=== PATIENT | female | born 1935 | race Caucasian/White ===

== ENCOUNTER 2021-09-20 15:07 | Inpatient (IN) | payer MEDICARE, BC ==
[2021-09-20] MEDS ORDERED: Aspirin Chewable 81 MG TAB ONE (15:28)
[2021-09-20] MEDS ORDERED: Ondansetron PF 4 MG/2 ML Vial ONE (15:28)
[2021-09-20 16:02] LABS: #Eosinphils 0.1 10x3/uL (0.0-0.5); #Monocytes 0.7 10x3/uL (0.0-1.1); #Neutrophils 3.8 10x3/uL (1.5-8.4); %Basophils 0.5 % (0.0-2.0); %Lymphocytes 24.2 % (18.0-47.0); %Monocytes 10.8 % (0.0-10.0); %Neutrophils 62.2 % (40.0-75.0); Hemoglobin 12.6 g/dL (12.0-15.5); Mean Corpuscular HGB CONC 31.2 g/dL (32.0-36.0); Mean Corpuscular Hemoglobin 30.8 pg (27.0-33.0); Mean Corpuscular Volume 98.8 fl (81.6-98.3); Mean Platelet Volume 12.4 fl (7.4-10.4); Platelet Count 119 10x3/uL (150-450); RBC Distribution Width 13.2 % (11.5-14.5); Red Blood Cell (RBC) Count 4.09 10x6/uL (3.90-5.03)
[2021-09-20 16:18] LABS: ALT (SGPT) 100 U/L (8-55); AST (SGOT) 141 U/L (5-34); Albumin 3.9 g/dL (3.4-4.8); Alkaline Phosphatase 125 U/L (40-110); Anion Gap 14 mmol/L (10-20); BUN (Urea Nitrogen) 20 mg/dL (9.8-20.1); Bilirubin, Total 0.7 mg/dL (0.2-1.2); Calc. Creatinine Clearance 0 mL/min (70-130); Calcium 8.5 mg/dL (7.8-10.44); Carbon Dioxide 20 mmol/L (23-31); Chloride 109 mmol/L (98-107); Digoxin Less than 0.15 ng/mL (0.8-2.0); Globulin 2.4 g/dL (2.4-3.5); Glucose 119 mg/dL (83-110); Potassium 4.1 mmol/L (3.5-5.1); Protein, Total 6.3 g/dL (5.8-8.1); Sodium 139 mmol/L (136-145)
[2021-09-20] MEDS ORDERED: Diltiazem 125 MG/25 ML ONE (16:18)
[2021-09-20] MEDS ORDERED: Furosemide 40 MG/4 ML VIAL ONE (17:11)
[2021-09-20] MEDS ORDERED: Dextrose 50% Abboject 50 ML SYRINGE SLOW IVP PRN (18:29)
[2021-09-20] MEDS ORDERED: Dextrose 5% in Water 1,000 ML IV PRN (18:29)
[2021-09-20] MEDS ORDERED: HumaLOG 300 UNITS/3 ML VIAL SC PRN (18:29)
[2021-09-20 18:58] LABS: Free T4 (Free Thyroxine) 1.05 ng/dL (0.70-1.48); Thyroid Stimulating Hormone 1.7051 uIU/mL (0.35-4.94)
[2021-09-20 19:15] LABS: Troponin I 0.024 ng/mL (< 0.028)
[2021-09-20 22:17] LABS: Troponin I 0.024 ng/mL (< 0.028)
[2021-09-21 02:56] VITALS: BMI 23.5
[2021-09-21] MEDS: Sodium Chloride 0.9% 1,000 ML IV SCH ×3 (03:02→12:18)
[2021-09-21] MEDS ORDERED: Enoxaparin Sodium 40 MG/0.4 ML SYRINGE SC SCH (06:00)
[2021-09-21 09:19] LABS: Bilirubin Neg (Negative); Blood, Urine Negative (Negative); Clarity Clear (Clear); Glucose, Urine (Dipstick) Normal (Negative); Ketone, Urine Negative (Negative); Leukocyte Negative (Negative); Nitrite Negative (Negative); Protein, Urine (Dipstick) 15 mg/dl (Neg-Trace)
[2021-09-21 09:21] LABS: Urine Culture Reflex No No
[2021-09-21 09:34] LABS: Bacteria/HPF Rare-Few HPF (None Seen); RBC/HPF 0-3 HPF (0-3); WBC/HPF 0-3 HPF (0-3)
[2021-09-21] MEDS ORDERED: Diltiazem HCl 125 MG, Admixture Fee 1 EACH in Sodium Chloride 0.9% 100 ML IVPB SCH (09:45)
[2021-09-21 11:33] LABS: Hemoglobin A1c 6.7 % (4.0-6.0)
[2021-09-21] MEDS ORDERED: Magnesium 2 GM/50 ML 2 GM in Premix Bag 1 BAG IVPB SCH (13:00)
[2021-09-21 13:22] LABS: Anion Gap 12 mmol/L (10-20); BUN (Urea Nitrogen) 16 mg/dL (9.8-20.1); Calc. Creatinine Clearance 52 mL/min (70-130); Calcium 8.4 mg/dL (7.8-10.44); Carbon Dioxide 20 mmol/L (23-31); Chloride 109 mmol/L (98-107); Glucose 155 mg/dL (83-110); Magnesium 1.9 mg/dL (1.6-2.6); Potassium 4.3 mmol/L (3.5-5.1); Sodium 137 mmol/L (136-145)
[2021-09-21] MEDS ORDERED: Metoprolol Tartrate 25 MG TAB PO SCH (15:00)
[2021-09-21] MEDS: HumaLOG 300 UNITS/3 ML VIAL SC PRN (17:00)
[2021-09-21] MEDS: Ondansetron PF 4 MG/2 ML Vial IVP PRN (17:00)
[2021-09-21] MEDS: Apixaban 5 MG TAB PO SCH (20:09)
[2021-09-21] MEDS: Metoprolol Tartrate 25 MG TAB PO SCH (22:40)
[2021-09-22] MEDS: Sodium Chloride 0.9% 1,000 ML IV SCH ×2 (00:15→08:52)
[2021-09-22 08:50] LABS: SARS-CoV-2 NAA Rapid Test Not Detected (NotDetected)
[2021-09-22] MEDS: Apixaban 5 MG TAB PO SCH ×2 (08:51→20:05)
[2021-09-22] MEDS: Metoprolol Tartrate 25 MG TAB PO SCH ×2 (08:51→20:04)
[2021-09-22] MEDS: metFORMIN XR 500 MG TAB PO SCH (08:52)
[2021-09-22] MEDS ORDERED: Enoxaparin Sodium 40 MG/0.4 ML SYRINGE SC SCH (09:00)
[2021-09-22 09:02] LABS: ALT (SGPT) 112 U/L (8-55); AST (SGOT) 97 U/L (5-34); Albumin 3.8 g/dL (3.4-4.8); Alkaline Phosphatase 112 U/L (40-110); Anion Gap 14 mmol/L (10-20); BUN (Urea Nitrogen) 19 mg/dL (9.8-20.1); Bilirubin, Total 0.8 mg/dL (0.2-1.2); Calc. Creatinine Clearance 47 mL/min (70-130); Calcium 8.5 mg/dL (7.8-10.44); Carbon Dioxide 20 mmol/L (23-31); Chloride 108 mmol/L (98-107); Globulin 2.6 g/dL (2.4-3.5); Glucose 109 mg/dL (83-110); Potassium 3.9 mmol/L (3.5-5.1); Protein, Total 6.4 g/dL (5.8-8.1); Sodium 138 mmol/L (136-145)
[2021-09-22] MEDS ORDERED: Furosemide 20 MG/2 ML VIAL SLOW IVP SCH (12:00)
[2021-09-22 14:07] LABS: HIV (1/2) Antibody/Antigen Non-Reactive (NonReactive); HIV 1/2 INDEX 0.08 S/CO (<1.00)
[2021-09-22] MEDS ORDERED: hydrALAZINE 20 MG/ML VIAL SLOW IVP PRN (19:11)
[2021-09-22] MEDS ORDERED: Lisinopril 20 MG TAB PO SCH (20:00)
[2021-09-22] MEDS: Simvastatin 10 MG TAB PO SCH (20:04)
[2021-09-23 02:51] LABS: Hep C IgG Ab Non-Reactive (NonReactive); Hep C Index 0.05 S/CO (0-0.79)
[2021-09-23 04:38] LABS: AST (SGOT) 77 U/L (5-34); Albumin 3.8 g/dL (3.4-4.8); Alkaline Phosphatase 112 U/L (40-110); Anion Gap 16 mmol/L (10-20); BUN (Urea Nitrogen) 20 mg/dL (9.8-20.1); Bilirubin, Total 0.6 mg/dL (0.2-1.2); Calc. Creatinine Clearance 43 mL/min (70-130); Calcium 8.7 mg/dL (7.8-10.44); Carbon Dioxide 16 mmol/L (23-31); Chloride 108 mmol/L (98-107); Globulin 2.4 g/dL (2.4-3.5); Glucose 145 mg/dL (83-110); Potassium 4.1 mmol/L (3.5-5.1); Sodium 136 mmol/L (136-145)
[2021-09-23 04:57] LABS: ALT (SGPT) 95 U/L (8-55); Protein, Total 6.2 g/dL (5.8-8.1)
[2021-09-23] MEDS ORDERED: Furosemide 40 MG/4 ML VIAL SLOW IVP SCH ×2 (08:00→15:00)
[2021-09-23 08:31] LABS: #Eosinphils 0.2 10x3/uL (0.0-0.5); #Monocytes 0.7 10x3/uL (0.0-1.1); %Basophils 0.5 % (0.0-2.0); %Eosinophils 2.5 % (0.0-6.0); %Lymphocytes 19.5 % (18.0-47.0); %Monocytes 9.6 % (0.0-10.0); %Neutrophils 67.8 % (40.0-75.0); Hemoglobin 13.6 g/dL (12.0-15.5); Mean Corpuscular HGB CONC 30.9 g/dL (32.0-36.0); Mean Corpuscular Hemoglobin 30.8 pg (27.0-33.0); Mean Corpuscular Volume 99.5 fl (81.6-98.3); Mean Platelet Volume 12.5 fl (7.4-10.4); Platelet Count 139 10x3/uL (150-450); RBC Distribution Width 13.3 % (11.5-14.5); Red Blood Cell (RBC) Count 4.42 10x6/uL (3.90-5.03); White Blood Cell (WBC) Count 7.3 10x3/uL (3.5-10.5)
[2021-09-23] MEDS: metFORMIN XR 500 MG TAB PO SCH (08:44)
[2021-09-23] MEDS: Apixaban 5 MG TAB PO SCH ×2 (08:44→20:23)
[2021-09-23] MEDS: Metoprolol Tartrate 25 MG TAB PO SCH (08:44)
[2021-09-23] MEDS: Lisinopril 20 MG TAB PO SCH (08:44)
[2021-09-23] MEDS: Simvastatin 10 MG TAB PO SCH (20:23)
[2021-09-23] MEDS: Metoprolol Tartrate 50 MG TAB PO SCH (20:23)
[2021-09-24 04:01] LABS: #Basophils 0.1 10x3/uL (0.0-0.2); #Eosinphils 0.2 10x3/uL (0.0-0.5); #Monocytes 0.9 10x3/uL (0.0-1.1); #Neutrophils 5.1 10x3/uL (1.5-8.4); %Basophils 0.6 % (0.0-2.0); %Eosinophils 2.8 % (0.0-6.0); %Lymphocytes 21.3 % (18.0-47.0); %Monocytes 10.8 % (0.0-10.0); %Neutrophils 64.2 % (40.0-75.0); Hemoglobin 13.7 g/dL (12.0-15.5); Mean Corpuscular HGB CONC 31.4 g/dL (32.0-36.0); Mean Corpuscular Hemoglobin 31.4 pg (27.0-33.0); Mean Corpuscular Volume 99.8 fl (81.6-98.3); Mean Platelet Volume 12.4 fl (7.4-10.4); Platelet Count 143 10x3/uL (150-450); RBC Distribution Width 13.2 % (11.5-14.5); Red Blood Cell (RBC) Count 4.37 10x6/uL (3.90-5.03); White Blood Cell (WBC) Count 7.9 10x3/uL (3.5-10.5)
[2021-09-24 04:19] LABS: ALT (SGPT) 81 U/L (8-55); AST (SGOT) 53 U/L (5-34); Alkaline Phosphatase 107 U/L (40-110); Anion Gap 16 mmol/L (10-20); BUN (Urea Nitrogen) 19 mg/dL (9.8-20.1); Bilirubin, Total 0.7 mg/dL (0.2-1.2); Calc. Creatinine Clearance 40 mL/min (70-130); Calcium 9.1 mg/dL (7.8-10.44); Carbon Dioxide 23 mmol/L (23-31); Chloride 104 mmol/L (98-107); Globulin 2.6 g/dL (2.4-3.5); Glucose 132 mg/dL (83-110); Potassium 3.5 mmol/L (3.5-5.1); Protein, Total 6.6 g/dL (5.8-8.1); Sodium 139 mmol/L (136-145)
[2021-09-24] MEDS: Metoprolol Tartrate 50 MG TAB PO SCH ×2 (08:35→22:08)
[2021-09-24] MEDS: Apixaban 5 MG TAB PO SCH ×2 (08:35→22:08)
[2021-09-24] MEDS: Lisinopril 20 MG TAB PO SCH (08:35)
[2021-09-24] MEDS: metFORMIN XR 500 MG TAB PO SCH (08:37)
[2021-09-24] MEDS ORDERED: Potassium Chloride 10 MEQ TAB PO SCH (11:00)
[2021-09-24] MEDS ORDERED: Furosemide 40 MG TAB PO SCH (11:00)
[2021-09-24] MEDS: Ondansetron PF 4 MG/2 ML Vial IVP PRN (14:48)
[2021-09-24] MEDS: HumaLOG 300 UNITS/3 ML VIAL SC PRN (18:20)
[2021-09-24] MEDS: Simvastatin 10 MG TAB PO SCH (22:08)
[2021-09-25 03:51] LABS: #Basophils 0.1 10x3/uL (0.0-0.2); #Eosinphils 0.2 10x3/uL (0.0-0.5); #Monocytes 0.9 10x3/uL (0.0-1.1); #Neutrophils 4.4 10x3/uL (1.5-8.4); %Basophils 0.7 % (0.0-2.0); %Eosinophils 3.1 % (0.0-6.0); %Monocytes 11.4 % (0.0-10.0); %Neutrophils 59.4 % (40.0-75.0); Hemoglobin 13.2 g/dL (12.0-15.5); Mean Corpuscular HGB CONC 32.4 g/dL (32.0-36.0); Mean Corpuscular Hemoglobin 31.4 pg (27.0-33.0); Mean Corpuscular Volume 96.9 fl (81.6-98.3); Mean Platelet Volume 12.6 fl (7.4-10.4); Platelet Count 143 10x3/uL (150-450); RBC Distribution Width 13.2 % (11.5-14.5); Red Blood Cell (RBC) Count 4.21 10x6/uL (3.90-5.03); White Blood Cell (WBC) Count 7.5 10x3/uL (3.5-10.5)
[2021-09-25 03:58] LABS: ALT (SGPT) 64 U/L (8-55); AST (SGOT) 40 U/L (5-34); Albumin 3.8 g/dL (3.4-4.8); Alkaline Phosphatase 96 U/L (40-110); Anion Gap 14 mmol/L (10-20); BUN (Urea Nitrogen) 18 mg/dL (9.8-20.1); Bilirubin, Total 0.8 mg/dL (0.2-1.2); Calc. Creatinine Clearance 40 mL/min (70-130); Calcium 8.7 mg/dL (7.8-10.44); Carbon Dioxide 24 mmol/L (23-31); Chloride 102 mmol/L (98-107); Globulin 2.6 g/dL (2.4-3.5); Glucose 178 mg/dL (83-110); Potassium 3.6 mmol/L (3.5-5.1); Protein, Total 6.4 g/dL (5.8-8.1); Sodium 136 mmol/L (136-145)
[2021-09-25] MEDS: Metoprolol Tartrate 50 MG TAB PO SCH ×2 (08:04→20:29)
[2021-09-25] MEDS: Lisinopril 20 MG TAB PO SCH (08:04)
[2021-09-25] MEDS: metFORMIN XR 500 MG TAB PO SCH (08:04)
[2021-09-25] MEDS: Apixaban 5 MG TAB PO SCH ×2 (08:05→20:29)
[2021-09-25] MEDS: Potassium Chloride 10 MEQ TAB PO SCH (08:05)
[2021-09-25] MEDS: Furosemide 40 MG TAB PO SCH (08:05)
[2021-09-25] MEDS: Simvastatin 10 MG TAB PO SCH (20:29)
[2021-09-26 04:41] LABS: #Eosinphils 0.2 10x3/uL (0.0-0.5); #Monocytes 0.8 10x3/uL (0.0-1.1); %Basophils 0.6 % (0.0-2.0); %Eosinophils 3.1 % (0.0-6.0); %Lymphocytes 22.5 % (18.0-47.0); %Neutrophils 61.5 % (40.0-75.0); Hemoglobin 12.9 g/dL (12.0-15.5); Mean Corpuscular HGB CONC 32.8 g/dL (32.0-36.0); Mean Corpuscular Hemoglobin 32.1 pg (27.0-33.0); Mean Corpuscular Volume 97.8 fl (81.6-98.3); Mean Platelet Volume 12.5 fl (7.4-10.4); Platelet Count 138 10x3/uL (150-450); RBC Distribution Width 13.2 % (11.5-14.5); Red Blood Cell (RBC) Count 4.02 10x6/uL (3.90-5.03); White Blood Cell (WBC) Count 6.5 10x3/uL (3.5-10.5)
[2021-09-26 04:51] LABS: ALT (SGPT) 52 U/L (8-55); AST (SGOT) 35 U/L (5-34); Albumin 3.6 g/dL (3.4-4.8); Alkaline Phosphatase 92 U/L (40-110); Anion Gap 14 mmol/L (10-20); BUN (Urea Nitrogen) 15 mg/dL (9.8-20.1); Bilirubin, Total 0.9 mg/dL (0.2-1.2); Calc. Creatinine Clearance 50 mL/min (70-130); Calcium 8.8 mg/dL (7.8-10.44); Carbon Dioxide 26 mmol/L (23-31); Chloride 104 mmol/L (98-107); Globulin 2.4 g/dL (2.4-3.5); Glucose 133 mg/dL (83-110); Magnesium 1.7 mg/dL (1.6-2.6); Phosphorus 3.9 mg/dL (2.3-4.7); Potassium 3.2 mmol/L (3.5-5.1); Sodium 141 mmol/L (136-145)
[2021-09-26] MEDS ORDERED: Potassium Chloride 20 MEQ TAB PO SCH (06:30)
[2021-09-26] MEDS: Potassium Chloride 10 MEQ TAB PO SCH (07:59)
[2021-09-26] MEDS: Apixaban 5 MG TAB PO SCH (07:59)
[2021-09-26] MEDS: Furosemide 40 MG TAB PO SCH (07:59)
[2021-09-26] MEDS: Metoprolol Tartrate 50 MG TAB PO SCH (07:59)
[2021-09-26] MEDS: metFORMIN XR 500 MG TAB PO SCH (07:59)
[2021-09-26] MEDS: Lisinopril 20 MG TAB PO SCH (07:59)
[2021-09-26] MEDS: HumaLOG 300 UNITS/3 ML VIAL SC PRN (12:13)
[2021-09-26 15:21] VITALS: BP 150/80
[2021-09-26 15:37] VITALS: TEMP 96.7
== END 2021-09-26 16:37 | disposition home or self-care (01) | DRG 308 ==
LOC: CSHERS 15:07 → CSHTELE 19:31 → OBSVTOIN 19:32 → CSHERHOLD 19:32 → CSHTELE 09-21 02:48
PROVIDERS: ADMIT Family Medicine; ATTEND Family Medicine
DX: I48.91 Unspecified atrial fibrillation (principal); I50.33 Acute on chronic diastolic (congestive) heart failure; Z20.822 Contact with and (suspected) exposure to COVID-19; I27.21 Secondary pulmonary arterial hypertension; I25.10 Atherosclerotic heart disease of native coronary artery without angina pectoris; I70.0 Atherosclerosis of aorta; I11.0 Hypertensive heart disease with heart failure; R74.01 Elevation of levels of liver transaminase levels; E78.5 Hyperlipidemia, unspecified; F41.9 Anxiety disorder, unspecified; E11.9 Type 2 diabetes mellitus without complications; E87.6 Hypokalemia; Z90.49 Acquired absence of other specified parts of digestive tract
CPT/HCPCS: 36415; 36416; 71045; 71046; 71275; 76705; 80048; 80053; 80061; 80162; 81001; 83036; 83735; 83880; 84100; 84439; 84443; 84481; 84484; 85025; 85379; 86803; 87389; 93005; 93010; 93306; 94760; 94762; 96374; 96375; J0360; J1650; J1815; J1940; J2405; J3475; J3490; J7050; U0002; U0003; U0005

== ENCOUNTER 2021-10-12 00:20 | Emergency (ER) | payer MEDICARE, BC ==
[2021-10-12 01:02] LABS: #Eosinphils 0.2 10x3/uL (0.0-0.5); #Monocytes 0.7 10x3/uL (0.0-1.1); #Neutrophils 4.2 10x3/uL (1.5-8.4); %Basophils 0.6 % (0.0-2.0); %Eosinophils 2.9 % (0.0-6.0); %Lymphocytes 23.1 % (18.0-47.0); %Monocytes 10.6 % (0.0-10.0); %Neutrophils 62.5 % (40.0-75.0); Hemoglobin 13.5 g/dL (12.0-15.5); Mean Corpuscular HGB CONC 32.4 g/dL (32.0-36.0); Mean Corpuscular Hemoglobin 31.5 pg (27.0-33.0); Mean Corpuscular Volume 97.2 fl (81.6-98.3); Mean Platelet Volume 13.4 fl (7.4-10.4); Platelet Count 132 10x3/uL (150-450); RBC Distribution Width 13.6 % (11.5-14.5); Red Blood Cell (RBC) Count 4.29 10x6/uL (3.90-5.03); White Blood Cell (WBC) Count 6.6 10x3/uL (3.5-10.5)
[2021-10-12 01:22] LABS: ALT (SGPT) 70 U/L (8-55); AST (SGOT) 59 U/L (5-34); Albumin 4.1 g/dL (3.4-4.8); Alkaline Phosphatase 96 U/L (40-110); Anion Gap 13 mmol/L (10-20); BUN (Urea Nitrogen) 17 mg/dL (9.8-20.1); Bilirubin, Total 0.8 mg/dL (0.2-1.2); Calc. Creatinine Clearance 0 mL/min (70-130); Calcium 8.8 mg/dL (7.8-10.44); Carbon Dioxide 21 mmol/L (23-31); Chloride 107 mmol/L (98-107); Globulin 2.4 g/dL (2.4-3.5); Glucose 185 mg/dL (83-110); Protein, Total 6.5 g/dL (5.8-8.1); Sodium 137 mmol/L (136-145)
[2021-10-12 01:38] LABS: CKMB 6.1 ng/mL (0-6.6)
== END 2021-10-12 02:15 | disposition home or self-care (01) ==
LOC: CSHERS 00:20
DX: I48.19 Other persistent atrial fibrillation (principal)
CPT/HCPCS: 71045; 80053; 82553; 83880; 84484; 85025; 93005

== ENCOUNTER 2021-12-04 04:58 | Inpatient (IN) | payer MEDICARE, BC ==
[2021-12-04] MEDS ORDERED: Furosemide 100 MG/10 ML VIAL ONE (05:16)
[2021-12-04] MEDS ORDERED: Diltiazem 125 MG/25 ML ONE (05:16)
[2021-12-04 05:35] LABS: #Basophils 0.1 10x3/uL (0.0-0.2); #Eosinphils 0.2 10x3/uL (0.0-0.5); #Monocytes 0.9 10x3/uL (0.0-1.1); #Neutrophils 6.1 10x3/uL (1.5-8.4); %Basophils 0.9 % (0.0-2.0); %Eosinophils 1.8 % (0.0-6.0); %Lymphocytes 16.7 % (18.0-47.0); %Monocytes 10.7 % (0.0-10.0); %Neutrophils 69.6 % (40.0-75.0); Hemoglobin 14.9 g/dL (12.0-15.5); Mean Corpuscular HGB CONC 32.1 g/dL (32.0-36.0); Mean Corpuscular Hemoglobin 30.6 pg (27.0-33.0); Mean Corpuscular Volume 95.3 fl (81.6-98.3); Mean Platelet Volume 12.4 fl (7.4-10.4); Platelet Count 146 10x3/uL (150-450); Red Blood Cell (RBC) Count 4.87 10x6/uL (3.90-5.03); White Blood Cell (WBC) Count 8.8 10x3/uL (3.5-10.5)
[2021-12-04 05:50] LABS: ALT (SGPT) 35 U/L (8-55); AST (SGOT) 44 U/L (5-34); Alkaline Phosphatase 97 U/L (40-110); Anion Gap 19 mmol/L (10-20); BUN (Urea Nitrogen) 24 mg/dL (9.8-20.1); Bilirubin, Total 1.7 mg/dL (0.2-1.2); Calc. Creatinine Clearance 0 mL/min (70-130); Calcium 9.2 mg/dL (7.8-10.44); Carbon Dioxide 19 mmol/L (23-31); Chloride 105 mmol/L (98-107); Globulin 2.9 g/dL (2.4-3.5); Glucose 171 mg/dL (83-110); Potassium 3.5 mmol/L (3.5-5.1); Protein, Total 6.9 g/dL (5.8-8.1); Sodium 139 mmol/L (136-145)
[2021-12-04] MEDS ORDERED: Senokot S 8.6-50 MG TAB PO PRN (05:54)
[2021-12-04] MEDS ORDERED: Acetaminophen 325 MG TAB PO PRN (05:54)
[2021-12-04] MEDS ORDERED: Calcium Carbonate 500 MG ChewTAB PO PRN (05:54)
[2021-12-04] MEDS ORDERED: HYDROcodone/Acetaminophen 5/325 mg Tablet PO PRN (05:54)
[2021-12-04] MEDS ORDERED: Guaifenesin DM 100-10/5 ML UDCUP PO PRN (05:54)
[2021-12-04] MEDS ORDERED: Dextrose 5% in Water 1,000 ML IV PRN (05:57)
[2021-12-04] MEDS ORDERED: Dextrose 50% Abboject 50 ML SYRINGE SLOW IVP PRN (05:57)
[2021-12-04] MEDS ORDERED: Diltiazem 125 MG in Sodium Chloride 0.9% 100 ML IVPB SCH (06:00)
[2021-12-04 06:09] LABS: CKMB 5.7 ng/mL (0-6.6)
[2021-12-04] MEDS ORDERED: Potassium Chloride 20 MEQ TAB PO SCH ×2 (06:15→13:30)
[2021-12-04 06:41] LABS: SARS-CoV-2 NAA Rapid Test Not Detected (NotDetected)
[2021-12-04] MEDS ORDERED: Apixaban 5 MG TAB PO SCH (09:00)
[2021-12-04 10:53] LABS: CKMB 4.1 ng/mL (0-6.6)
[2021-12-04] MEDS: Metoprolol Tartrate 50 MG TAB PO SCH ×2 (10:59→21:59)
[2021-12-04] MEDS: Famotidine 20 MG TAB PO SCH (10:59)
[2021-12-04] MEDS: HumaLOG 300 UNITS/3 ML VIAL SC PRN ×2 (11:00→17:54)
[2021-12-04] MEDS: Potassium Chloride 10 MEQ TAB PO SCH (11:00)
[2021-12-04 12:11] LABS: Magnesium 1.8 mg/dL (1.6-2.6)
[2021-12-04] MEDS: Furosemide 20 MG/2 ML VIAL SLOW IVP SCH (14:46)
[2021-12-04] MEDS: Apixaban 2.5 MG TAB PO SCH (21:59)
[2021-12-04] MEDS: Simvastatin 10 MG TAB PO SCH (22:00)
[2021-12-05 04:54] LABS: #Basophils 0.1 10x3/uL (0.0-0.2); #Eosinphils 0.2 10x3/uL (0.0-0.5); #Monocytes 0.8 10x3/uL (0.0-1.1); #Neutrophils 4.5 10x3/uL (1.5-8.4); %Basophils 0.7 % (0.0-2.0); %Eosinophils 3.5 % (0.0-6.0); %Lymphocytes 17.1 % (18.0-47.0); %Monocytes 11.5 % (0.0-10.0); %Neutrophils 66.8 % (40.0-75.0); Hemoglobin 13.2 g/dL (12.0-15.5); Mean Corpuscular HGB CONC 32.4 g/dL (32.0-36.0); Mean Corpuscular Hemoglobin 31.1 pg (27.0-33.0); Mean Platelet Volume 12.6 fl (7.4-10.4); Platelet Count 125 10x3/uL (150-450); RBC Distribution Width 15.1 % (11.5-14.5); Red Blood Cell (RBC) Count 4.25 10x6/uL (3.90-5.03); White Blood Cell (WBC) Count 6.8 10x3/uL (3.5-10.5)
[2021-12-05 05:11] LABS: Anion Gap 18 mmol/L (10-20); BUN (Urea Nitrogen) 26 mg/dL (9.8-20.1); Calc. Creatinine Clearance 36 mL/min (70-130); Calcium 8.6 mg/dL (7.8-10.44); Carbon Dioxide 21 mmol/L (23-31); Chloride 105 mmol/L (98-107); Glucose 133 mg/dL (83-110); Potassium 3.7 mmol/L (3.5-5.1); Sodium 140 mmol/L (136-145)
[2021-12-05] MEDS: Furosemide 20 MG/2 ML VIAL SLOW IVP SCH (06:21)
[2021-12-05] MEDS: Famotidine 20 MG TAB PO SCH (07:59)
[2021-12-05] MEDS: Potassium Chloride 10 MEQ TAB PO SCH (07:59)
[2021-12-05] MEDS: Apixaban 2.5 MG TAB PO SCH ×2 (08:00→20:38)
[2021-12-05] MEDS: Metoprolol Tartrate 50 MG TAB PO SCH ×2 (08:00→20:38)
[2021-12-05 08:38] VITALS: BMI 23.2
[2021-12-05] MEDS: HumaLOG 300 UNITS/3 ML VIAL SC PRN ×3 (11:42→22:16)
[2021-12-05] MEDS: Furosemide 20 MG TAB PO SCH (14:08)
[2021-12-05] MEDS: Simvastatin 10 MG TAB PO SCH (20:38)
[2021-12-05] MEDS ORDERED: Lorazepam 0.5 MG TAB PO SCH (22:45)
[2021-12-06 04:37] LABS: Anion Gap 15 mmol/L (10-20); BUN (Urea Nitrogen) 33 mg/dL (9.8-20.1); Calc. Creatinine Clearance 21 mL/min (70-130); Calcium 8.5 mg/dL (7.8-10.44); Carbon Dioxide 23 mmol/L (23-31); Chloride 103 mmol/L (98-107); Glucose 109 mg/dL (83-110); Potassium 3.8 mmol/L (3.5-5.1); Sodium 137 mmol/L (136-145)
[2021-12-06] MEDS ORDERED: Potassium Chloride 20 MEQ TAB PO SCH (08:15)
[2021-12-06] MEDS: Metoprolol Tartrate 50 MG TAB PO SCH ×2 (08:38→21:24)
[2021-12-06] MEDS: Famotidine 20 MG TAB PO SCH (08:38)
[2021-12-06] MEDS: Potassium Chloride 10 MEQ TAB PO SCH (08:39)
[2021-12-06] MEDS: Furosemide 20 MG TAB PO SCH ×2 (08:39→13:42)
[2021-12-06] MEDS: Apixaban 2.5 MG TAB PO SCH ×2 (08:39→21:24)
[2021-12-06] MEDS: Simvastatin 10 MG TAB PO SCH (21:24)
[2021-12-06] MEDS: Diltiazem HCl SR 90 mg Capsule PO SCH (21:24)
[2021-12-07] MEDS: Metoprolol Tartrate 50 MG TAB PO SCH ×3 (00:08→20:14)
[2021-12-07] MEDS: Diltiazem HCl SR 90 mg Capsule PO SCH ×3 (00:09→20:15)
[2021-12-07] MEDS: Apixaban 2.5 MG TAB PO SCH ×3 (00:09→20:12)
[2021-12-07] MEDS: Simvastatin 10 MG TAB PO SCH ×2 (00:10→20:15)
[2021-12-07] MEDS: Famotidine 20 MG TAB PO SCH (08:43)
[2021-12-07] MEDS: Potassium Chloride 10 MEQ TAB PO SCH (08:46)
[2021-12-07] MEDS: Furosemide 20 MG TAB PO SCH (09:11)
[2021-12-07 10:13] LABS: Anion Gap 15 mmol/L (10-20); BUN (Urea Nitrogen) 35 mg/dL (9.8-20.1); Calc. Creatinine Clearance 23 mL/min (70-130); Calcium 8.6 mg/dL (7.8-10.44); Carbon Dioxide 24 mmol/L (23-31); Chloride 101 mmol/L (98-107); Glucose 247 mg/dL (83-110); Potassium 4.3 mmol/L (3.5-5.1); Sodium 136 mmol/L (136-145)
[2021-12-07] MEDS: HumaLOG 300 UNITS/3 ML VIAL SC PRN ×2 (16:51→20:48)
[2021-12-08] MEDS ORDERED: Sterile Water 10 ML VIAL FS PRN (01:45)
[2021-12-08] MEDS ORDERED: Ziprasidone 20 MG VIAL ONE (02:19)
[2021-12-08] MEDS ORDERED: Water For Injection,Sterile 20 ML ONE (02:20)
[2021-12-08] MEDS: Ziprasidone 20 MG VIAL IM SCH ×2 (02:24→07:41)
[2021-12-08 09:10] VITALS: BP 146/98; TEMP 98.5
[2021-12-08] MEDS: Apixaban 2.5 MG TAB PO SCH (09:37)
[2021-12-08] MEDS: Metoprolol Tartrate 50 MG TAB PO SCH (09:37)
[2021-12-08] MEDS: Diltiazem HCl SR 90 mg Capsule PO SCH (09:37)
[2021-12-08] MEDS: Potassium Chloride 10 MEQ TAB PO SCH (09:37)
[2021-12-08] MEDS: Furosemide 20 MG TAB PO SCH (09:38)
[2021-12-08] MEDS: Famotidine 20 MG TAB PO SCH (09:38)
== END 2021-12-08 10:42 | disposition home or self-care (01) | DRG 291 ==
LOC: CSHERS 04:58 → SUATTDRO 04:58 → CSHIMCU 07:50 → CSHTELE 12-06 07:46
PROVIDERS: ADMIT Hospitalist; ATTEND Hospitalist
DX: I13.0 Hypertensive heart and chronic kidney disease with heart failure and stage 1 through stage 4 chronic kidney disease, or unspecified chronic kidney disease (principal); I50.33 Acute on chronic diastolic (congestive) heart failure; N17.9 Acute kidney failure, unspecified; I24.8 Other forms of acute ischemic heart disease; I48.91 Unspecified atrial fibrillation; N18.31 Chronic kidney disease, stage 3a; E11.65 Type 2 diabetes mellitus with hyperglycemia; E11.22 Type 2 diabetes mellitus with diabetic chronic kidney disease; E78.2 Mixed hyperlipidemia; I25.10 Atherosclerotic heart disease of native coronary artery without angina pectoris; I70.0 Atherosclerosis of aorta; R41.0 Disorientation, unspecified; Z20.822 Contact with and (suspected) exposure to COVID-19; Z91.14 Patient's other noncompliance with medication regimen; Z88.0 Allergy status to penicillin; Z79.899 Other long term (current) drug therapy; Z79.01 Long term (current) use of anticoagulants; Z90.49 Acquired absence of other specified parts of digestive tract
CPT/HCPCS: 36415; 36416; 51702; 71045; 80048; 80053; 82553; 83735; 83880; 84443; 84484; 85025; 93005; 96365; 96366; 96375; 96376; 99292; J1815; J1940; J3475; J3486; J3490; U0002

== ENCOUNTER 2021-12-10 14:22 | Emergency (ER) | payer MEDICARE, BC ==
[2021-12-10] MEDS ORDERED: Aspirin Chewable 81 MG TAB ONE (15:19)
[2021-12-10] MEDS ORDERED: Diltiazem 125 MG/25 ML ONE ×3 (15:20→15:22)
[2021-12-10 15:29] LABS: #Eosinphils 0.2 10x3/uL (0.0-0.5); #Monocytes 1.1 10x3/uL (0.0-1.1); %Basophils 0.4 % (0.0-2.0); %Eosinophils 2.1 % (0.0-6.0); %Lymphocytes 14.8 % (18.0-47.0); %Monocytes 10.8 % (0.0-10.0); %Neutrophils 71.4 % (40.0-75.0); Mean Corpuscular HGB CONC 31.6 g/dL (32.0-36.0); Mean Corpuscular Hemoglobin 30.8 pg (27.0-33.0); Mean Corpuscular Volume 97.4 fl (81.6-98.3); Mean Platelet Volume 12.5 fl (7.4-10.4); Platelet Count 181 10x3/uL (150-450); Red Blood Cell (RBC) Count 4.55 10x6/uL (3.90-5.03); White Blood Cell (WBC) Count 9.8 10x3/uL (3.5-10.5)
[2021-12-10 15:40] LABS: ALT (SGPT) 33 U/L (8-55); AST (SGOT) 42 U/L (5-34); Albumin 3.8 g/dL (3.4-4.8); Alkaline Phosphatase 98 U/L (40-110); Anion Gap 17 mmol/L (10-20); BUN (Urea Nitrogen) 33 mg/dL (9.8-20.1); Bilirubin, Total 0.8 mg/dL (0.2-1.2); CK (CPK) 253 U/L (29-168); Calc. Creatinine Clearance 0 mL/min (70-130); Calcium 9.3 mg/dL (7.8-10.44); Carbon Dioxide 21 mmol/L (23-31); Chloride 106 mmol/L (98-107); Globulin 2.7 g/dL (2.4-3.5); Glucose 153 mg/dL (83-110); Potassium 5.2 mmol/L (3.5-5.1); Protein, Total 6.5 g/dL (5.8-8.1); Sodium 139 mmol/L (136-145)
== END 2021-12-10 17:48 | disposition home or self-care (01) ==
LOC: CSHERS 14:22
DX: I48.91 Unspecified atrial fibrillation (principal); E11.9 Type 2 diabetes mellitus without complications; I10 Essential (primary) hypertension; E78.5 Hyperlipidemia, unspecified
CPT/HCPCS: 71045; 80053; 82550; 83605; 83880; 84484; 85025; 93005; 96365; 96376

== ENCOUNTER → 2022-01-28 | Day surgery (SDC) | payer BC, MEDICARE ==
[~2022-01-28] MED LIST: Lidocaine 1% (PF) 30 ML VIAL ONE; Magnesium 2 GM/50 ML(in water) 2 GM in Premix Bag 1 BAG IVPB SCH; PROPOFOL 200 MG/20 ML VIAL ONE
[2022-01-28 10:38] VITALS: BMI 22.7
== END ==
LOC: CSHSDC 09:26
PROVIDERS: ATTEND Specialist
DX: I48.19 Other persistent atrial fibrillation (principal); I48.92 Unspecified atrial flutter; I10 Essential (primary) hypertension; E11.59 Type 2 diabetes mellitus with other circulatory complications; I25.118 Atherosclerotic heart disease of native coronary artery with other forms of angina pectoris; Z95.5 Presence of coronary angioplasty implant and graft; Z88.0 Allergy status to penicillin; Z79.01 Long term (current) use of anticoagulants; Z79.899 Other long term (current) drug therapy; Z79.82 Long term (current) use of aspirin; Z79.84 Long term (current) use of oral hypoglycemic drugs
CPT/HCPCS: 92960; 93005; 93010; J2001; J2704; J3475

== ENCOUNTER 2022-03-01 11:28 | Emergency (ER) | payer MEDICARE, BC ==
[2022-03-01 12:44] LABS: #Eosinphils 0.2 10x3/uL (0.0-0.5); #Monocytes 0.6 10x3/uL (0.0-1.1); #Neutrophils 3.8 10x3/uL (1.5-8.4); %Basophils 0.5 % (0.0-2.0); %Lymphocytes 18.4 % (18.0-47.0); %Monocytes 10.7 % (0.0-10.0); %Neutrophils 66.9 % (40.0-75.0); Hemoglobin 12.1 g/dL (12.0-15.5); Mean Corpuscular HGB CONC 32.7 g/dL (32.0-36.0); Mean Corpuscular Hemoglobin 32.1 pg (27.0-33.0); Mean Corpuscular Volume 98.1 fl (81.6-98.3); Mean Platelet Volume 11.6 fl (7.4-10.4); Platelet Count 146 10x3/uL (150-450); RBC Distribution Width 15.1 % (11.5-14.5); Red Blood Cell (RBC) Count 3.77 10x6/uL (3.90-5.03); White Blood Cell (WBC) Count 5.7 10x3/uL (3.5-10.5)
[2022-03-01 12:59] LABS: ALT (SGPT) 21 U/L (8-55); AST (SGOT) 30 U/L (5-34); Albumin 3.8 g/dL (3.4-4.8); Alkaline Phosphatase 85 U/L (40-110); Anion Gap 10 mmol/L (10-20); BUN (Urea Nitrogen) 15 mg/dL (9.8-20.1); Bilirubin, Total 0.8 mg/dL (0.2-1.2); Calc. Creatinine Clearance 0 mL/min (70-130); Calcium 8.8 mg/dL (7.8-10.44); Carbon Dioxide 26 mmol/L (23-31); Chloride 103 mmol/L (98-107); Globulin 2.8 g/dL (2.4-3.5); Glucose 142 mg/dL (83-110); Lipase 36 U/L (8-78); Potassium 3.3 mmol/L (3.5-5.1); Protein, Total 6.6 g/dL (5.8-8.1); Sodium 136 mmol/L (136-145)
[2022-03-01 13:35] LABS: Bilirubin Neg (Negative); Blood, Urine Negative (Negative); Glucose, Urine (Dipstick) Normal (Negative); Ketone, Urine Negative (Negative); Leukocyte 100 (Negative); Nitrite Negative (Negative); Protein, Urine (Dipstick) 15 mg/dl (Neg-Trace)
[2022-03-01 13:42] LABS: Clarity Clear (Clear)
[2022-03-01 13:58] LABS: Bacteria/HPF Rare-Few HPF (None Seen); RBC/HPF 0-3 HPF (0-3)
== END 2022-03-01 14:01 | disposition home or self-care (01) ==
LOC: CSHERS 11:28
DX: N39.0 Urinary tract infection, site not specified (principal); I10 Essential (primary) hypertension; I48.91 Unspecified atrial fibrillation; E11.9 Type 2 diabetes mellitus without complications; E78.5 Hyperlipidemia, unspecified; Z79.84 Long term (current) use of oral hypoglycemic drugs; Z79.01 Long term (current) use of anticoagulants; Z79.899 Other long term (current) drug therapy
CPT/HCPCS: 36415; 80053; 81003; 81015; 83690; 85025; 93005

== ENCOUNTER 2022-03-03 10:49 | Emergency (ER) | payer OTHER, MEDICARE, BC | END 2022-03-03 12:30 | disposition home or self-care (01) | LOC: CSHERS 10:49 | DX: S00.03XA Contusion of scalp, initial encounter (principal); W01.10XA Fall on same level from slipping, tripping and stumbling with subsequent striking against unspecified object, initial encounter; Z79.899 Other long term (current) drug therapy; Z79.01 Long term (current) use of anticoagulants; Z79.84 Long term (current) use of oral hypoglycemic drugs; I48.91 Unspecified atrial fibrillation; E11.9 Type 2 diabetes mellitus without complications; I10 Essential (primary) hypertension; E78.5 Hyperlipidemia, unspecified | CPT/HCPCS: 70450; 72125 ==

== ENCOUNTER 2022-03-11 14:39 | Inpatient (IN) | payer MEDICARE, BC ==
[2022-03-11 15:45] LABS: #Basophils 0.1 10x3/uL (0.0-0.2); #Eosinphils 0.3 10x3/uL (0.0-0.5); #Monocytes 0.9 10x3/uL (0.0-1.1); #Neutrophils 6.4 10x3/uL (1.5-8.4); %Basophils 0.5 % (0.0-2.0); %Eosinophils 2.7 % (0.0-6.0); %Lymphocytes 20.4 % (18.0-47.0); %Monocytes 8.9 % (0.0-10.0); %Neutrophils 66.5 % (40.0-75.0); Hemoglobin 10.9 g/dL (12.0-15.5); Mean Corpuscular HGB CONC 31.8 g/dL (32.0-36.0); Mean Corpuscular Hemoglobin 31.9 pg (27.0-33.0); Mean Corpuscular Volume 100.3 fl (81.6-98.3); Mean Platelet Volume 11.4 fl (7.4-10.4); Platelet Count 210 10x3/uL (150-450); RBC Distribution Width 15.3 % (11.5-14.5); Red Blood Cell (RBC) Count 3.42 10x6/uL (3.90-5.03); White Blood Cell (WBC) Count 9.6 10x3/uL (3.5-10.5)
[2022-03-11 16:01] LABS: Phosphorus 5.2 mg/dL (2.3-4.7)
[2022-03-11 16:04] LABS: ALT (SGPT) 39 U/L (8-55); AST (SGOT) 85 U/L (5-34); Albumin 4.1 g/dL (3.4-4.8); Alkaline Phosphatase 116 U/L (40-110); Anion Gap 16 mmol/L (10-20); BUN (Urea Nitrogen) 22 mg/dL (9.8-20.1); Bilirubin, Total 0.9 mg/dL (0.2-1.2); Calc. Creatinine Clearance 0 mL/min (70-130); Calcium 8.9 mg/dL (7.8-10.44); Carbon Dioxide 22 mmol/L (23-31); Chloride 101 mmol/L (98-107); Globulin 2.6 g/dL (2.4-3.5); Glucose 206 mg/dL (83-110); Magnesium 2.2 mg/dL (1.6-2.6); Potassium 5.3 mmol/L (3.5-5.1); Protein, Total 6.7 g/dL (5.8-8.1); Sodium 134 mmol/L (136-145)
[2022-03-11] MEDS ORDERED: Calcium Gluc 4.6 MEQ/10 ML (100 MG/ML) ONE (16:35)
[2022-03-11 18:00] LABS: Actual Bicarbonate (HCO3a) 17.2 mEq/L (22-28); Base Excess (BEa) -6.6 mEq/L (-2.0 to +3.0); CO2 Tension 29.3 mmHg (35.0-45.0); Calcium, Ionized (arterial) 1.17 mmol/L (1.12-1.30); Carboxyhemoglobin (COHb) 0.3 gm% (0.0-3.0); Hemoglobin (Hb) 11.9 g/dL (12.0-16.0); O2 Tension (PaO2), arterial 63.7 mmHg (> 60.0); Potassium - ABG Lab 5.2 mmol/L (3.70-5.30); Puncture Site LRA; pH, Arterial 7.39 (7.35-7.45)
[2022-03-11 18:01] LABS: ALV-art Gradient 49.405 mmHg (0-20)
[2022-03-11 18:17] LABS: SARS-CoV-2 NAA Rapid Test Not Detected (NotDetected)
[2022-03-11] MEDS ORDERED: Dextrose 50% Abboject 50 ML SYRINGE SLOW IVP PRN (18:24)
[2022-03-11] MEDS ORDERED: HumaLOG 300 UNITS/3 ML VIAL SC PRN (18:24)
[2022-03-11] MEDS ORDERED: Dextrose 5% in Water 1,000 ML IV PRN (18:24)
[2022-03-11 20:13] LABS: Anion Gap 19 mmol/L (10-20); BUN (Urea Nitrogen) 23 mg/dL (9.8-20.1); Calc. Creatinine Clearance 22 mL/min (70-130); Calcium 9.2 mg/dL (7.8-10.44); Carbon Dioxide 18 mmol/L (23-31); Chloride 102 mmol/L (98-107); Glucose 197 mg/dL (83-110); Potassium 5.3 mmol/L (3.5-5.1); Sodium 134 mmol/L (136-145)
[2022-03-11] MEDS ORDERED: Lorazepam 2 MG/ML VIAL SLOW IVP SCH (21:00)
[2022-03-11] MEDS ORDERED: Nitroglycerin 2% Ointment 1 INCH/1 GM Packet TOP SCH (21:00)
[2022-03-11] MEDS ORDERED: Calcium Gluc 4.6 MEQ/10 ML (100 MG/ML) SLOW IVP SCH (21:15)
[2022-03-11] MEDS ORDERED: Sodium Bicarb 50 MEQ/50 ML VIAL IVP SCH (21:15)
[2022-03-11] MEDS: Sodium Chloride 0.9% 1,000 ML IV SCH (21:37)
[2022-03-11] MEDS ORDERED: Albuterol Sulfate 2.5 mg/3 ml Neb NEB PRN (21:45)
[2022-03-11] MEDS ORDERED: Morphine 4 MG/ML VIAL SLOW IVP SCH (21:45)
[2022-03-11] MEDS: cefTRIAXone\\ROCEPHIN 1 GM in Sodium Chloride 0.9% 100 ML IVPB SCH (21:48)
[2022-03-11] MEDS: hydrALAZINE 20 MG/ML VIAL SLOW IVP PRN (21:48)
[2022-03-11] MEDS: Famotidine/PF 20 mg/2ml Vial SLOW IVP SCH (21:50)
[2022-03-11] MEDS ORDERED: Albuterol Sulfate 2.5 mg/3 ml Neb ONE (21:52)
[2022-03-11 23:25] LABS: Bilirubin Neg (Negative); Blood, Urine Negative (Negative); Clarity Clear (Clear); Glucose, Urine (Dipstick) Normal (Negative); Ketone, Urine Negative (Negative); Leukocyte Negative (Negative); Nitrite Negative (Negative); Protein, Urine (Dipstick) Negative (Neg-Trace); pH, Urine 6.5 (5.0-9.0)
[2022-03-11 23:34] LABS: Bacteria/HPF None Seen HPF (None Seen); RBC/HPF 0-3 HPF (0-3); Squamous Epithelial 0-3 HPF (0-3); WBC/HPF None Seen HPF (0-3)
[2022-03-12 05:02] LABS: Anion Gap 15 mmol/L (10-20); BUN (Urea Nitrogen) 20 mg/dL (9.8-20.1); CK (CPK) 114 U/L (29-168); Calc. Creatinine Clearance 30 mL/min (70-130); Calcium 7.5 mg/dL (7.8-10.44); Carbon Dioxide 20 mmol/L (23-31); Chloride 108 mmol/L (98-107); Glucose 147 mg/dL (83-110); Potassium 4.1 mmol/L (3.5-5.1); Sodium 139 mmol/L (136-145)
[2022-03-12 05:09] LABS: #Monocytes 1.1 10x3/uL (0.0-1.1); #Neutrophils 8.8 10x3/uL (1.5-8.4); %Basophils 0.4 % (0.0-2.0); %Lymphocytes 10.5 % (18.0-47.0); %Monocytes 9.8 % (0.0-10.0); %Neutrophils 78.8 % (40.0-75.0); Hemoglobin 9.6 g/dL (12.0-15.5); Mean Corpuscular HGB CONC 32.1 g/dL (32.0-36.0); Mean Corpuscular Hemoglobin 31.9 pg (27.0-33.0); Mean Corpuscular Volume 99.3 fl (81.6-98.3); Mean Platelet Volume 11.7 fl (7.4-10.4); Platelet Count 166 10x3/uL (150-450); RBC Distribution Width 15.2 % (11.5-14.5); Red Blood Cell (RBC) Count 3.01 10x6/uL (3.90-5.03); White Blood Cell (WBC) Count 11.2 10x3/uL (3.5-10.5)
[2022-03-12] MEDS: Sodium Chloride 0.9% 1,000 ML IV SCH ×2 (08:48→21:10)
[2022-03-12] MEDS ORDERED: Calcium Gluconate 4.6 MEQ in Sodium Chloride 0.9% 100 ML IVPB SCH (11:10)
[2022-03-12] MEDS: cefTRIAXone\\ROCEPHIN 1 GM in Sodium Chloride 0.9% 100 ML IVPB SCH (17:56)
[2022-03-12] MEDS: Famotidine/PF 20 mg/2ml Vial SLOW IVP SCH (21:10)
[2022-03-13] MEDS: hydrALAZINE 20 MG/ML VIAL SLOW IVP PRN ×2 (02:05→10:26)
[2022-03-13 04:16] LABS: #Eosinphils 0.1 10x3/uL (0.0-0.5); #Monocytes 0.8 10x3/uL (0.0-1.1); #Neutrophils 7.1 10x3/uL (1.5-8.4); %Basophils 0.3 % (0.0-2.0); %Eosinophils 1.4 % (0.0-6.0); %Lymphocytes 10.8 % (18.0-47.0); %Monocytes 9.1 % (0.0-10.0); %Neutrophils 77.2 % (40.0-75.0); Hemoglobin 10.4 g/dL (12.0-15.5); Mean Corpuscular HGB CONC 32.3 g/dL (32.0-36.0); Mean Corpuscular Hemoglobin 32.2 pg (27.0-33.0); Mean Corpuscular Volume 99.7 fl (81.6-98.3); Mean Platelet Volume 11.5 fl (7.4-10.4); Platelet Count 161 10x3/uL (150-450); RBC Distribution Width 15.3 % (11.5-14.5); Red Blood Cell (RBC) Count 3.23 10x6/uL (3.90-5.03); White Blood Cell (WBC) Count 9.2 10x3/uL (3.5-10.5)
[2022-03-13 04:30] LABS: Anion Gap 15 mmol/L (10-20); BUN (Urea Nitrogen) 19 mg/dL (9.8-20.1); Calc. Creatinine Clearance 31 mL/min (70-130); Calcium 8.5 mg/dL (7.8-10.44); Carbon Dioxide 22 mmol/L (23-31); Chloride 105 mmol/L (98-107); Glucose 99 mg/dL (83-110); Potassium 4.8 mmol/L (3.5-5.1); Sodium 137 mmol/L (136-145)
[2022-03-13] MEDS: Lisinopril 20 MG TAB PO SCH (09:32)
[2022-03-13] MEDS: Sodium Chloride 0.9% 1,000 ML IV SCH (10:22)
[2022-03-13] MEDS: cefTRIAXone\\ROCEPHIN 1 GM in Sodium Chloride 0.9% 100 ML IVPB SCH (17:42)
[2022-03-13] MEDS: Famotidine/PF 20 mg/2ml Vial SLOW IVP SCH (20:00)
[2022-03-13] MEDS: Simvastatin 10 MG TAB PO SCH (20:00)
[2022-03-14] MEDS: hydrALAZINE 20 MG/ML VIAL SLOW IVP PRN ×2 (00:32→11:01)
[2022-03-14 05:19] LABS: #Eosinphils 0.1 10x3/uL (0.0-0.5); #Monocytes 0.9 10x3/uL (0.0-1.1); #Neutrophils 6.6 10x3/uL (1.5-8.4); %Basophils 0.3 % (0.0-2.0); %Eosinophils 1.6 % (0.0-6.0); %Lymphocytes 10.2 % (18.0-47.0); %Monocytes 10.5 % (0.0-10.0); %Neutrophils 76.9 % (40.0-75.0); Hemoglobin 11.5 g/dL (12.0-15.5); Mean Corpuscular HGB CONC 33.3 g/dL (32.0-36.0); Mean Corpuscular Hemoglobin 31.9 pg (27.0-33.0); Mean Corpuscular Volume 95.8 fl (81.6-98.3); Mean Platelet Volume 11.1 fl (7.4-10.4); Platelet Count 164 10x3/uL (150-450); RBC Distribution Width 15.4 % (11.5-14.5); White Blood Cell (WBC) Count 8.6 10x3/uL (3.5-10.5)
[2022-03-14 05:25] LABS: Anion Gap 15 mmol/L (10-20); BUN (Urea Nitrogen) 12 mg/dL (9.8-20.1); Calc. Creatinine Clearance 51 mL/min (70-130); Calcium 8.3 mg/dL (7.8-10.44); Carbon Dioxide 19 mmol/L (23-31); Chloride 106 mmol/L (98-107); Glucose 100 mg/dL (83-110); Potassium 3.6 mmol/L (3.5-5.1); Sodium 136 mmol/L (136-145)
[2022-03-14] MEDS: Sodium Chloride 0.9% 1,000 ML IV SCH (05:30)
[2022-03-14 07:22] VITALS: BMI 22.0
[2022-03-14] MEDS: Lisinopril 20 MG TAB PO SCH (08:50)
[2022-03-14] MEDS ORDERED: Amlodipine 5 MG TAB PO SCH (09:30)
[2022-03-14] MEDS ORDERED: Potassium Chloride 20 MEQ TAB PO SCH (11:00)
[2022-03-14] MEDS: cefTRIAXone\\ROCEPHIN 1 GM in Sodium Chloride 0.9% 100 ML IVPB SCH (18:31)
[2022-03-14] MEDS: Apixaban 2.5 MG TAB PO SCH (22:34)
[2022-03-14] MEDS: Simvastatin 10 MG TAB PO SCH (22:34)
[2022-03-14] MEDS: Famotidine/PF 20 mg/2ml Vial SLOW IVP SCH (22:35)
[2022-03-15] MEDS: Apixaban 2.5 MG TAB PO SCH (07:54)
[2022-03-15] MEDS: Lisinopril 20 MG TAB PO SCH (07:54)
[2022-03-15 07:56] VITALS: BP 168/88
[2022-03-15] MEDS ORDERED: Amlodipine 5 MG TAB PO SCH ×2 (09:00→09:15)
[2022-03-15] MEDS ORDERED: Potassium Bicarbonate/Cit Ac 20 MEQ TAB PO SCH (11:45)
[2022-03-15 12:50] VITALS: TEMP 97.4
[2022-03-16] MEDS ORDERED: Amlodipine 10 MG TAB PO SCH (09:00)
== END 2022-03-15 15:21 | disposition home or self-care (01) | DRG 308 ==
LOC: CSHERS 14:39 → CSHICU 18:15 → CSHTELE 18:27
PROVIDERS: ADMIT Internal Medicine; ATTEND Internal Medicine
PROC: 0T9B70Z Drainage of Bladder with Drainage Device, Via Natural or Artificial Opening (ICD-10-PCS; principal; 2022-03-12)
DX: I48.0 Paroxysmal atrial fibrillation (principal); G93.41 Metabolic encephalopathy; N17.9 Acute kidney failure, unspecified; I50.32 Chronic diastolic (congestive) heart failure; E87.2 Acidosis; N39.0 Urinary tract infection, site not specified; I13.0 Hypertensive heart and chronic kidney disease with heart failure and stage 1 through stage 4 chronic kidney disease, or unspecified chronic kidney disease; E78.5 Hyperlipidemia, unspecified; F03.90 Unspecified dementia, unspecified severity, without behavioral disturbance, psychotic disturbance, mood disturbance, and anxiety; E87.5 Hyperkalemia; N18.30 Chronic kidney disease, stage 3 unspecified; E11.22 Type 2 diabetes mellitus with diabetic chronic kidney disease; R33.9 Retention of urine, unspecified; E83.51 Hypocalcemia; I25.10 Atherosclerotic heart disease of native coronary artery without angina pectoris; I70.0 Atherosclerosis of aorta; I49.5 Sick sinus syndrome; Z20.822 Contact with and (suspected) exposure to COVID-19; Z90.49 Acquired absence of other specified parts of digestive tract; Z88.8 Allergy status to other drugs, medicaments and biological substances; Z88.0 Allergy status to penicillin; Z79.01 Long term (current) use of anticoagulants; Z79.84 Long term (current) use of oral hypoglycemic drugs; Z79.899 Other long term (current) drug therapy
CPT/HCPCS: 36415; 36416; 36600; 70450; 71045; 80048; 80053; 81001; 82550; 82805; 83735; 83880; 84100; 84484; 85025; 87040; 93005; 93010; 94640; 94760; 96374; J0360; J0610; J0696; J1815; J2060; J2270; J3490; J7050; J7611; J7620; S0028; U0002

== ENCOUNTER 2022-08-04 12:12 | Emergency (ER) | payer BC ==
[2022-08-04] MEDS ORDERED: Rabies Vaccine Human 2.5 UNITS VIAL ONE ×2 (13:24→13:50)
[2022-08-04] MEDS ORDERED: Boostrix 0.5 ML (Tdap) VIAL (>/=7 yrs of age) ONE (13:24)
== END 2022-08-04 14:50 | disposition home or self-care (01) ==
LOC: CSHERS 12:12
DX: S91.052A Open bite, left ankle, initial encounter (principal); I48.91 Unspecified atrial fibrillation; E11.9 Type 2 diabetes mellitus without complications; I10 Essential (primary) hypertension; E78.5 Hyperlipidemia, unspecified; W55.51XA Bitten by raccoon, initial encounter
CPT/HCPCS: 90375; 90675; 90715

== ENCOUNTER → 2022-08-07 | Day surgery (SDC) | payer BC ==
[~2022-08-07] MED LIST changes: -Lidocaine 1% (PF) 30 ML VIAL ONE; -Magnesium 2 GM/50 ML(in water) 2 GM in Premix Bag 1 BAG IVPB SCH; -PROPOFOL 200 MG/20 ML VIAL ONE; +Rabies Vaccine Human 2.5 UNITS VIAL ONE
== END ==
LOC: CSHER/OP 11:33
PROVIDERS: ATTEND Pathology Anatomic Pathology & Clinical Pathology
DX: Z23 Encounter for immunization (principal); Z88.0 Allergy status to penicillin; Z88.8 Allergy status to other drugs, medicaments and biological substances
CPT/HCPCS: 90375; 90471; 90472; 90675; 90715; 96372

== ENCOUNTER → 2022-08-11 | Day surgery (SDC) | payer BC ==
[~2022-08-11] MED LIST changes: +Rabies Vaccine Human 2.5 UNITS VIAL IM ONE; -Rabies Vaccine Human 2.5 UNITS VIAL ONE
== END ==
LOC: CSHER/OP 12:00
PROVIDERS: ATTEND Emergency Medicine
DX: Z23 Encounter for immunization (principal)
CPT/HCPCS: 90471; 90675

== ENCOUNTER → 2022-08-18 | Day surgery (SDC) | payer BC | LOC: CSHER/OP 14:33 | PROVIDERS: ATTEND Emergency Medicine | DX: Z23 Encounter for immunization (principal); Z88.0 Allergy status to penicillin; Z88.8 Allergy status to other drugs, medicaments and biological substances | CPT/HCPCS: 90675 ==